=== PATIENT | female | born 2000 | race Hispanic/Latino ===

== ENCOUNTER 2023-11-11 16:55 | Emergency (ER) | payer OTHER ==
[~2023-11-11] VITALS: Ht 154.9 cm; Wt 48.1 kg
[~2023-11-11 16:55] MED LIST: ONDANSETRON ODT4 MG PO
[2023-11-11 17:00] VITALS: PULSE 76; RESP 18; TEMP 97.7
[2023-11-11] MEDS: KETOROLAC TROMETHAMINE 60 MG/2 ML VIAL IM STA (17:45)
[2023-11-11] MEDS: ONDANSETRON HCL 4 MG ORAL DISINTEGRATING TAB PO ONE (17:46)
[2023-11-11 18:23] LABS: AMPHETAMINES SCREEN,URINE NEGATIVE (NEGATIVE); BENZODIAZEPINES SCREEN,URINE NEGATIVE (NEGATIVE); CANNABINOIDS SCREEN,URINE NEGATIVE (NEGATIVE); METHADONE SCREEN, URINE NEGATIVE (NEGATIVE); OPIATES SCREEN,URINE NEGATIVE (NEGATIVE); PHENCYCLIDINE SCREEN,URINE NEGATIVE (NEGATIVE)
[2023-11-11 18:24] LABS: CLARITY,URINE SL CLOUDY (CLEAR); COLOR,URINE YELLOW (YELLOW); GLUCOSE, URINE NEGATIVE (NEGATIVE); KETONES,URINE 1+ (NEGATIVE); LEUKOCYTE ESTERASE ,URINE NEGATIVE (NEGATIVE); NITRITE,URINE NEGATIVE (NEGATIVE); PH,URINE 6 (5 - 7); PROTEIN,URINE DIPSTICK NEGATIVE (NEGATIVE)
[2023-11-11 18:25] LABS: BILIRUBIN,URINE NEGATIVE (NEGATIVE); PREGNANCY TEST, URINE NEGATIVE (NEGATIVE); URINE UROBILINOGEN 0.2 mg/dL (0.2 - 1)
[2023-11-11] MEDS: FAMOTIDINE 20 MG TAB PO STA (18:27)
[2023-11-11 18:34] LABS: BACTERIA,URINE FEW /HPF; EPITHELIAL CELLS,URINE MANY /LPF; RBC,URINE 0-5 /HPF (0-5); WBC,URINE (MAN) 0-5 /HPF (0-5)
[2023-11-11] MEDS ORDERED: ONDANSETRON ODT4 MG PO (19:40)
[2023-11-11] MEDS ORDERED: PEPCID20 MG PO (19:40)
[2023-11-11 19:52] VITALS: BP 119/81; PULSE 74; RESP 18; TEMP 98; O2SAT 99
== END 2023-11-11 19:28 | disposition home or self-care (01) ==
LOC: ER 17:00
DX: R11.2 Nausea with vomiting, unspecified (principal); R51.9 Headache, unspecified; J45.909 Unspecified asthma, uncomplicated; F41.9 Anxiety disorder, unspecified; Z11.52 Encounter for screening for COVID-19
CPT/HCPCS: 80307; 81001; 81025; 83518; 87070; 87400; 99284; J1885; Q0162; U0002